=== PATIENT | male | born 1985 | race Two or more races ===

== ENCOUNTER 2018-09-06 17:03 | Emergency (ER) | payer MEDICARE, OTHER ==
[~2018-09-06] VITALS: Ht 170.2 cm; Wt 59.1 kg
[2018-09-06 17:06] VITALS: BP 115/77
[2018-09-06] MEDS ORDERED: ALPR0.5T8 PO (17:16)
[2018-09-06] MEDS ORDERED: TRAM50TA4 PO (17:16)
[2018-09-06] MEDS ORDERED: ONDA4 PO (17:16)
[2018-09-06] MEDS ORDERED: OMEP20 PO (17:16)
[2018-09-06] MEDS ORDERED: PROM25S PR (17:16)
[2018-09-06] MEDS ORDERED: TraMADol HCL 50 MG TABLET PO ONE (18:30)
[2018-09-06] MEDS ORDERED: ALPRAZolam 0.5 MG TABLET PO ONE (18:30)
[2018-09-06] MEDS ORDERED: ALPRAZolam 1 MG TABLET PO ONE (18:45)
== END 2018-09-06 18:52 | disposition home or self-care (01) ==
LOC: EMS 17:05
DX: F41.9 Anxiety disorder, unspecified (principal); F17.210 Nicotine dependence, cigarettes, uncomplicated; F12.90 Cannabis use, unspecified, uncomplicated; G89.29 Other chronic pain; Z76.0 Encounter for issue of repeat prescription; Z88.6 Allergy status to analgesic agent